=== PATIENT | female | born 1995 | race Caucasian/White ===

== ENCOUNTER 2018-07-07 18:42 | Emergency (ER) | payer OTHER ==
[2018-07-07 18:53] VITALS: BP 125/89
[2018-07-07] MEDS ORDERED: DEXAMETHASONE CONC 1 MG/ML SOLN PO ONE (20:13)
--- NOTE | 2018-07-07 20:16 | ER Document Report ---
ED Medical Screen (RME) - General Chief Complaint: Sore Throat Stated Complaint: SORE THROAT Time Seen by Provider: 07/07/18 18:57 Information source: Patient TRAVEL OUTSIDE OF THE [place] IN LAST 30 DAYS: No - HPI Patient complains to provider of: sore throat Onset: Other - This 23-year-old otherwise healthy female presented for evaluation of a sore throat times 4 days as well as potentially a low-grade fever today. She notes that it hurts worse when she swallows, has not had much of a cough but it has continued to hurt intermittently. She does not take anything try and help it except for some mouth spray which did not really improve her symptoms. She denies any lightheadedness, wheezing, diaphoresis, abdominal pain constipation dysuria. - Related Data Allergies/Adverse Reactions: No Known Allergies Allergy (Verified 07/07/18 18:55) Past Medical History - General Information source: Patient - Social History Chew tobacco use (# tins/day): No Frequency of alcohol use: Social Drug Abuse: None Renal/ Medical History: Denies: Hx Peritoneal Dialysis Review of Systems - Review of Systems -: Yes All other systems reviewed and negative Physical Exam - Vital signs Vitals: Temp Pulse Resp BP Pulse Ox 98.6 F 88 18 125/89 H 100 07/07/18 18:50 07/07/18 18:50 07/07/18 18:50 07/07/18 18:50 07/07/18 18:50 - General General appearance: Appears well In distress: None - HEENT Head: Normocephalic Eyes: Normal Conjunctiva: Normal Cornea: Normal Extraocular movements intact: Yes Eyelashes: Normal Pupils: PERRL Sinus: Normal Nasal: Normal Pharynx: Erythema, Exudate, Uvular edema Neck: Anterior cervical chain - Respiratory Respiratory status: No respiratory distress Chest status: Nontender Breath sounds: Normal Chest palpation: Normal - Cardiovascular Rhythm: Regular Heart sounds: Normal auscultation Murmur: No - Abdominal Inspection: Normal Distension: No distension Tenderness: Nontender - Back Back: Normal - Extremities General upper extremity: Normal inspection, Nontender, Normal ROM, Normal strength General lower extremity: Normal inspection, Nontender, Normal ROM, Normal strength - Neurological Neuro grossly intact: Yes Cognition: Normal Orientation: AAOx4 Luciano Coma Scale Eye Opening: Spontaneous Luciano Coma Scale Verbal: Oriented Luciano Coma Scale Motor: Obeys Commands [place] Coma Scale Total: 15 Speech: Normal Cranial nerves: Normal Motor strength normal: LUE, RUE, LLE, RLE - Psychological Associated symptoms: Normal affect Course - Re-evaluation Re-evalutation: 07/07/18 21:02 23-year-old female with sore throat low-level cough. Has slight tonsillar exudates. We will plan for proceeding with strep swab, she is otherwise well-appearing, does not have any obvious trismus normal range of motion in the neck no signs of meningismus at this time. We will plan for this patient undergo discharge after she has had a negative strep swab, she has been able to tolerate p.o. in the emergency department and remains well-appearing, will dose a single dose of Decadron for her sore throat while she is here. She will be encouraged to follow-up with her primary physician in case of any worsening symptoms. - Vital Signs Vital signs: Temp Pulse Resp BP Pulse Ox 98.6 F 88 18 125/89 H 100 07/07/18 18:50 07/07/18 18:50 07/07/18 18:50 07/07/18 18:50 07/07/18 18:50 Doctor's Discharge - Discharge Clinical Impression: Sore throat, Viral URI Condition: Good Disposition: HOME, SELF-CARE Instructions: Acetaminophen, Fever ([facility]), Sore Throat ([facility]), Upper Respiratory Illness ([facility]) Additional Instructions: You were seen today in the emergency department for sore throat, you had a test including a strep test, your strep test did not show that you have strep throat. You were given a dose of a steroid to help with the swelling. You should continue to take Motrin as well as Tylenol to help with your fever and sore throat. You should take them every 4-6 hours. Return for any worsening lightheadedness, inability to eat or drink or chest pain. Otherwise follow-up with your primary physician this week. Referrals: OPAL ARRINGTON MD [ACTIVE STAFF] - Follow up as needed
== END 2018-07-07 20:37 | disposition home or self-care (01) ==
LOC: ER 18:42
DX: J06.9 Acute upper respiratory infection, unspecified (principal); B97.89 Other viral agents as the cause of diseases classified elsewhere; J02.9 Acute pharyngitis, unspecified; R50.9 Fever, unspecified
CPT/HCPCS: 99282; 87070; 87880; J8540